=== PATIENT | female | born 1990 | race Caucasian/White ===

== ENCOUNTER 2019-03-26 20:32 | Emergency (ER) | payer OTHER ==
[~2019-03-26] VITALS: Ht 160 cm; Wt 115.2 kg
[2019-03-26 21:11] LABS: BILIRUBIN,URINE NEGATIVE (NEGATIVE); CLARITY,URINE SLIGHTLY CLOUDY; COLOR,URINE YELLOW; GLUCOSE, URINE (UA) NEGATIVE (NEGATIVE); KETONES,URINE NEGATIVE (NEGATIVE); LEUKOCYTE ESTERASE ,URINE NEGATIVE (NEGATIVE); NITRITE,URINE NEGATIVE (NEGATIVE); PH,URINE 5.5 (5-9); PROTEIN,URINE NEGATIVE (NEGATIVE)
[2019-03-26 21:12] LABS: BACTERIA,URINE MODERATE /HPF; SQUAMOUS EPITHELIAL CELL,UR 25-50 /HPF
--- NOTE | 2019-03-26 21:18 | ED Abdominal Pain ---
General Chief Complaint: Abdominal/GI Problems Stated Complaint: LEFT UPPER QUADRANTPAIN Nursing Triage Note: pt in police custody with [place] perez, co left upper quad abd pain since this am, has some frequency and burning with urination Sepsis Screen: No Definite Risk Source of Information: Patient History of Present Illness Date Seen by Provider: Mar 26, 2019 Time Seen by Provider: 21:18 Initial Comments 28-year-old female presenting from [facility] with complaints of upper abdominal pain. She has had nausea but no vomiting. She hasn't been wanting to eat as much today because of her nausea and abdominal pain. She states that she has had some spotting for the last 3 weeks. She has sharp abdominal pain going into her back. It radiates across her abdomen. It is worse when she tries to eat or drink something. She denies having pain like this before. She has had no fever or chills. She recently was on Bactrim for a rash. Allergies and Home Medications Allergies Coded Allergies: lithium (Verified Allergy, Unknown, 03/26/19) meperidine (Verified Allergy, Unknown, 03/26/19) Home Medications Dicyclomine HCl 20 Mg Tablet, 20 MG PO QID PRN for abdominal pain/cramping Prescribed by: TAB SMITH on 03/26/192325 Ondansetron 4 Mg Tab.rapdis, 4 MG PO Q6H PRN for NAUSEA/VOMITING Prescribed by: TAB SANTART on 03/26/192325 Patient Home Medication List Home Medication List Reviewed: Yes Review of Systems Review of Systems Constitutional: No chills, No fever; malaise EENTM: No Symptoms Reported Respiratory: No Symptoms Reported Cardiovascular: No Symptoms Reported Gastrointestinal: See HPI Genitourinary: Denies Burning, Denies Discharge, Denies Drainage, Denies Flank Pain Musculoskeletal: no symptoms reported Skin: no symptoms reported Psychiatric/Neurological: No Symptoms Reported Endocrine: No Symptoms Reported Past Dqufvhl-Djwjkm-Fvxnjj Hx Past Med/Social Hx: Reviewed Nursing Past Med/Soc Hx Patient Social History Alcohol Use: Denies Use Recreational Drug Use: No Smoking Status: Current Everyday Smoker 2nd Hand Smoke Exposure: No Recent Foreign Travel: No Contact w/Someone Who Travel: No Recent Infectious Disease Expo: No Recent Hopitalizations: No Physical Abuse: No Sexual Abuse: No Mistreated: No Fear: No Seasonal Allergies Seasonal Allergies: No Past Medical History Surgeries: Yes Section Respiratory: No Cardiac: No Neurological: No Genitourinary: No Gastrointestinal: No Musculoskeletal: No Endocrine: No HEENT: No Cancer: No Psychosocial: No Integumentary: No Blood Disorders: No Physical Exam Vital Signs Vital Signs - First Documented 03/26/19 20:58 Temp 36.8 Pulse 112 Resp 16 B/P (MAP) 158/88 (111) Pulse Ox 98 O2 Delivery Room Air Capillary Refill : Less Than 3 Seconds Height/Weight/BMI Height: '" Weight: lbs. oz. kg; 45.00 BMI Method: General Appearance: WD/WN, mild distress, obese HEENT: PERRL/EOMI, pharynx normal Neck: non-tender, full range of motion, supple, normal inspection Respiratory: chest non-tender, lungs clear, normal breath sounds Cardiovascular: normal peripheral pulses, regular rate, rhythm Gastrointestinal: normal bowel sounds, soft, no pulsatile mass; No distended, No guarding, No rebound; tenderness (diffuse mild tenderness with palpation), other (obese abdomen) Rectal: deferred Extremities: normal range of motion, non-tender, normal capillary refill Back: no vertebral tenderness, CVA tenderness (R), CVA tenderness (L) Neurologic/Psychiatric: corrugator II-XII nml as tested, alert, oriented x 3 Skin: normal color, warm/dry Progress/Results/Core Measures Results/Orders Lab Results Laboratory Tests Test 03/26/19 20:55 03/26/19 22:20 Range/Units Urine Color YELLOW Urine Clarity SLIGHTLY CLOUDY Urine pH 5.5 5-9 Urine Specific Alger 1.020 1.016-1.022 Urine Protein NEGATIVE NEGATIVE Urine Glucose (UA) NEGATIVE NEGATIVE Urine Ketones NEGATIVE NEGATIVE Urine Nitrite NEGATIVE NEGATIVE Urine Bilirubin NEGATIVE NEGATIVE Urine Urobilinogen 0.2 < = 1.0 MG/DL Urine Leukocyte Esterase NEGATIVE NEGATIVE Urine RBC (Auto) 3+ H NEGATIVE Urine RBC 10-25 H /HPF Urine WBC 10-25 H /HPF Urine Squamous Epithelial Cells 25-50 H /HPF Urine Crystals NONE /LPF Urine Bacteria MODERATE H /HPF Urine Casts NONE /LPF Urine Mucus NEGATIVE /LPF Urine Culture Indicated YES Urine Test NEGATIVE NEGATIVE White Blood Count 9.7 4.3-11.0 10^3/uL Red Blood Count 5.18 4.35-5.85 10^6/uL Hemoglobin 13.1 11.5-16.0 G/DL Hematocrit 40 35-52 % Mean Corpuscular Volume 77 L 80-99 FL Mean Corpuscular Hemoglobin 25 25-34 PG Mean Corpuscular Hemoglobin Concent 33 32-36 G/DL Red Cell Distribution Width 15.3 H 10.0-14.5 % Platelet Count 328 130-400 10^3/uL Mean Platelet Volume 9.1 7.4-10.4 FL Neutrophils (%) (Auto) 47 42-75 % Lymphocytes (%) (Auto) 42 12-44 % Monocytes (%) (Auto) 7 0-12 % Eosinophils (%) (Auto) 3 0-10 % Basophils (%) (Auto) 1 0-10 % Neutrophils # (Auto) 4.6 1.8-7.8 X 10^3 Lymphocytes # (Auto) 4.1 H 1.0-4.0 X 10^3 Monocytes # (Auto) 0.7 0.0-1.0 X 10^3 Eosinophils # (Auto) 0.3 0.0-0.3 10^3/uL Basophils # (Auto) 0.1 0.0-0.1 10^3/uL Sodium Level 139 135-145 MMOL/L Potassium Level 4.4 3.6-5.0 MMOL/L Chloride Level 101 98-107 MMOL/L Carbon Dioxide Level 25 21-32 MMOL/L Anion Gap 13 5-14 MMOL/L Blood Urea Nitrogen 14 7-18 MG/DL Creatinine 0.66 0.60-1.30 MG/DL Estimat Glomerular Filtration Rate > 60 BUN/Creatinine Ratio 21 Glucose Level 102 70-105 MG/DL Calcium Level 9.4 8.5-10.1 MG/DL Corrected Calcium 9.2 8.5-10.1 MG/DL Total Bilirubin < 0.2 0.1-1.0 MG/DL Aspartate Amino Transf (AST/SGOT) 18 5-34 U/L Alanine Aminotransferase (ALT/SGPT) 25 0-55 U/L Alkaline Phosphatase 70 40-136 U/L Total Protein 7.2 6.4-8.2 GM/DL Albumin 4.3 3.2-4.5 GM/DL Lipase 31 8-78 U/L My Orders Orders - TAB SMITH MD Ua Culture If Indicated (03/26/19 20:38) Hcg,Qualitative Urine (03/26/19 20:38) Urine Culture (03/26/19 20:55) Ketorolac Injection (Toradol Injection) (03/26/19 21:45) Ct Abdomen/Pelvis Wo (03/26/19 21:43) Ondansetron Oral Dissolve Tab (Zofran (03/26/19 22:05) Cbc With Automated Diff (03/26/19 22:05) Comprehensive Metabolic Panel (03/26/19 22:05) Lipase (03/26/19 22:05) Dicyclomine Injection (Bentyl Injection) (03/26/19 23:19) Medications Given in ED Current Medications Medications Dose Ordered Sig/Katharina Route Start Time Stop Time Status Last Admin Dose Admin Ketorolac Tromethamine 60 mg ONCE ONCE IM 03/26/19 21:45 03/26/19 21:46 DC 03/26/19 22:19 60 MG Vital Signs/I&O 03/26/19 03/26/19 20:58 23:35 Temp 36.8 Pulse 112 72 Resp 16 18 B/P (MAP) 158/88 (111) 132/91 Pulse Ox 98 99 O2 Delivery Room Air Room Air Blood Pressure Mean: 111 Progress Progress Note #1: Progress Note Obtain urinalysis and test. The test was negative and the urinalysis showed some blood but no definite infection. Will give Toradol for pain and obtain basic lab been CT scan to evaluate further for her pain and symptoms. Progress Note #2: Time: 21:43 Progress Note Obtain labs and CT scan to evaluate her abdominal pain and nausea further. Progress Note #3: Time: 23:01 Progress Note Labs did not show any acute significant abnormality. Her symptoms were improved with treatment. The CT scan shows no acute pathology but she does have a cystic mass around the left ovary. Encouraged to follow-up with Gynecology regarding this. Will treat symptomatically for possible gastroenteritis. Given Bentyl prior to discharge and prescribed Bentyl (dicyclomine) as well as Zofran for her symptoms. Diagnostic Imaging Diagonstic Imaging: CT Plain Films/CT/US/NM/MRI: abdomen, pelvis Comments Impression: 1. No acute pathology seen 2. Follow-up recommended to evaluate cystic mass from the ovary with differential includes benign ovarian neoplasm, endometrioma. Radiologist Vlad Sharpe M.D. Read at 9411 and faxed at [phone] Reviewed: [facility] Imp[facility] Primary Impression: Nausea alone Additional Impressions: Diffuse abdominal pain Left ovarian cyst Disposition: HOME, SELF-CARE Condition: Stable Departure-Patient Inst. Decision time for Depature: 23:21 Referrals: NO,LOCAL PHYSICIAN (PCP) Primary Care Physician [facility] Patient Instructions: Acute Abdomen (Belly Pain), Adult (DC), Full Liquid Diet, Nausea and Vomiting, Adult (DC), Ovarian Cyst (DC) Add. Discharge Instructions: Follow a liquid diet for the next 24 hours. Use the medicine for cramping/abdominal pain and nausea. Check with provider about abdominal pain/nausea Follow up with Gynecology about the ovarian cyst on the left. All discharge instructions reviewed with patient and/or family. Voiced understanding. Scripts Dicyclomine HCl (Dicyclomine HCl) 20 Mg Tablet 20 MG PO QID PRN for abdominal pain/cramping for 5 Days, #20 TAB 0 Refills Prov: TAB SMITH MD 03/26/19 Ondansetron (Ondansetron Odt) 4 Mg Tab.rapdis 4 MG PO Q6H PRN for NAUSEA/VOMITING for 2 Days, #8 TAB 0 Refills Prov: TAB SMITH MD 03/26/19 Images Torso/Trunk 1 - Mild, Tenderness (pain in upper abdomen that radiates to back) TAB SMITH MD Mar 26, 2019 21:18
[2019-03-26] MEDS ORDERED: KETOROLAC 60 MG/2 ML VIAL IM ONE (21:45)
[2019-03-26] MEDS ORDERED: ONDANSETRON 4 MG (ZOFRAN) ORAL DISSOLVE TAB PO STA (22:05)
[2019-03-26 22:25] LABS: BASOPHILS # (AUTO) 0.1 10^3/uL (0.0-0.1); BASOPHILS % (AUTO) 1 % (0-10); EOSINOPHILS # (AUTO) 0.3 10^3/uL (0.0-0.3); EOSINOPHILS % (AUTO) 3 % (0-10); HEMATOCRIT 40 % (35-52); HEMOGLOBIN 13.1 G/DL (11.5-16.0); LYMPHOCYTES # (AUTO) 4.1 X 10^3 (1.0-4.0); LYMPHOCYTES % (AUTO) 42 % (12-44); MEAN CORPUSCULAR HEMOGLOBIN 25 PG (25-34); MEAN CORPUSCULAR HGB CONC 33 G/DL (32-36); MEAN CORPUSCULAR VOLUME 77 FL (80-99); MEAN PLATELET VOLUME 9.1 FL (7.4-10.4); MONOCYTES # (AUTO) 0.7 X 10^3 (0.0-1.0); MONOCYTES % (AUTO) 7 % (0-12); NEUTROPHILS # (AUTO) 4.6 X 10^3 (1.8-7.8); NEUTROPHILS % (AUTO) 47 % (42-75); PLATELET COUNT 328 10^3/uL (130-400); RED CELL DISTRIBUTION WIDTH 15.3 % (10.0-14.5); WHITE BLOOD COUNT 9.7 10^3/uL (4.3-11.0)
[2019-03-26 22:43] LABS: BILIRUBIN,TOTAL < 0.2 MG/DL (0.1-1.0); BUN/CREATININE RATIO 21; CALCIUM 9.4 MG/DL (8.5-10.1); CARBON DIOXIDE 25 MMOL/L (21-32); CHLORIDE 101 MMOL/L (98-107); CREATININE SERUM 0.66 MG/DL (0.60-1.30); GFR ESTIMATED > 60; GLUCOSE 102 MG/DL (70-105); POTASSIUM 4.4 MMOL/L (3.6-5.0); SODIUM 139 MMOL/L (135-145)
[2019-03-26 22:44] LABS: ALANINE AMINOTRANSFERASE 25 U/L (0-55); ALBUMIN 4.3 GM/DL (3.2-4.5); ALKALINE PHOSPHATASE 70 U/L (40-136); LIPASE 31 U/L (8-78); TOTAL PROTEIN 7.2 GM/DL (6.4-8.2)
[2019-03-26] MEDS ORDERED: DICYCLOMINE 10 MG/ML (BENTYL) 2 ML AMP IM STA (23:19)
[2019-03-26] MEDS ORDERED: ONDA4TAB11 PO (23:26)
[2019-03-26] MEDS ORDERED: DICY20TA10 PO (23:26)
[2019-03-26 23:35] VITALS: BP 132/91
--- NOTE | 2019-03-27 07:31 | Diagnostic Imaging Report ---
PROCEDURE: CT abdomen and pelvis without contrast. TECHNIQUE: Multiple contiguous axial images were obtained through the abdomen and pelvis without the use of intravenous contrast. Auto Exposure Controls were utilized during the CT exam to meet ALARA standards for radiation dose reduction. DATE: March 26, 2019. COMPARISON: None. INDICATION: 28-year-old female, left upper quadrant abdominal pain. FINDINGS: There are limitations for evaluation of the abdominal organs, neoplastic processes, abscess, and limited evaluation of the vasculature relating to the lack of intravenous contrast. The visualized portions of the lung bases are clear. The heart is not enlarged. There is no pericardial effusion. The liver is diffusely low in attenuation consistent with diffuse fatty infiltration of the liver. The outer liver contours are not nodular. The gallbladder is unremarkable. There is no biliary ductal dilation. The main pancreatic duct is not abnormally dilated. Limited noncontrast evaluation of the pancreatic parenchyma is unremarkable. The spleen is not enlarged. There is an accessory splenule on axial image 31. The adrenal glands are unremarkable. Unremarkable appearance of the renal parenchyma. The urinary collecting systems are not distended. There is no identified renal or ureteral stone. There is a cystic mass in the pelvis measuring approximately 8.4 x 7.9 cm in axial dimension as measured on axial image 118 which may be a cystic left ovarian lesion versus paraovarian in location. There is mass effect on the urinary bladder. The urinary bladder is otherwise unremarkable in appearance. The intestinal tract is not distended. There is no evidence to suggest acute appendicitis. There is no free intraperitoneal air. There is no drainable fluid collection. There is no free pelvic fluid. There is no identified abnormally enlarged lymph node in the abdomen or pelvis which meets CT size criteria for adenopathy. There are bilateral L5 pars interarticularis defects. There is no identified acute bony abnormality. IMPRESSION: CT ABDOMEN AND PELVIS. 1. Cystic mass in the pelvis measuring approximately 8.4 x 7.9 cm in size which may be ovarian in etiology versus paraovarian. This is not well characterized on CT. This potentially could relate to a large ovarian cyst or paraovarian cyst although neoplastic etiology is also in the differential diagnosis. Pelvic ultrasound is recommended for further evaluation. 2. No otherwise identified potential acute abnormality in the abdomen or pelvis. 3. Diffuse fatty infiltration of the liver. Dictated by: Dictated on workstation # [id number]
--- OUTSIDE RECORDS SUMMARY | 2019-04-03 21:49 | XMS REPORT | Clinical Summary ---
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 JAYDE BUSH MD Patellofemoral stress syndrome Hospitalized for TENSION HEADACHE 439981885 (SNOMED CT) Active JAYDE BUSH MD Tension-type headache ASTHMA, MILD, INTERMITTENT 656728668 (SNOMED CT) Active JAYDE BUSH MD Mild intermittent asthma VULVOVAGINITIS 76174721 (SNOMED CT) Active JAYDE BUSH MD Vulvovaginitis ADJUSTMENT REACTION, ADOLESCENT 283638901 (SNOMED CT) Active JAYDE BUSH MD Adjustment reaction of adolesc ence INGROWN TOENAIL, INFECTED 92560196 (SNOMED CT) Active JAYDE BUSH MD Ingrowing nail with infection FAMILY HISTORY OF DIABETES 110347323 (SNOMED CT) Active JAYDE BUSH MD FH: Diabetes mellitus Medications Medication Instructions Start Date Stop Date Generic Name NDC Pr ovider ALBUTEROL 90 MCG/ACT AERO SOLN Take two (2) puffs every 4 ho urs as needed ALBUTEROL [id number] JAYDE Garza CEPHALEXIN MONOHYDRATE 500 MG TABS Take ONE capsule po TID 10/21 CEPHALEXIN [id number] JAYDE BUSH MD ORTHO TRI-CYCLEN LO 0.18/0.215/0.25 MG-25 MCG TABS Take ONE tablet daily. NORGESTIMATE-ETHINYL ESTRADIOL [id number] B BERTA BUSH MD ORTHO EVRA 150-35 MCG/24HR TRANSDERMAL PATCH WEEKLY Apply ON E patch weekly. NORELGESTROMIN-ETH ESTRADIOL [id number] ROSIBEL BUSH MD Medications Administered No information available. Allergies, Adverse Reactions, Alerts No information available. Results No information available. Plan of Care Type Date Detail Referral PT Eval and Treat Referral PT Eval and Treat Pending order HIV SCREEN (HIV-1/HI V-2, single assay) Pending order VDRL Pending order HCG-Urine Procedures Code Procedure Name Date Entry Date 94905 PT Eval and Treat CPT-59184 HIV SCREEN (HIV-1/HIV-2, single assay) 6 CPT-30503 VDRL CPT-20925 HCG-Urine Vital Signs Date Name Value Unit Description BP Diastolic 78 mm[Hg] blood pressure, diastolic BP Systolic 122 mm[Hg] blood pressure, systolic Weight Measured 209 [lb_av] weight E&M Weight Measured 95.00 kg weight in ki lograms E&M
--- OUTSIDE RECORDS SUMMARY | 2019-04-03 21:49 | XMS REPORT | Continuity of Care Document ---
Author Organization Unknown Address Unknown Phone Unavailable Allergies Active Description Code Type Severity Reaction Onset Reported/Identified Relationship to Patient Clinical Status Yes lithium [id number] Drug Allergy Unknown N/A 03/26/2019 Yes meperidine [id number] Drug Allerg y Unknown N/A 03/26/2019 Medications There is no data. Problems There is no data. Procedures There is no data. Results Test Result Range Urine beta human chorionic gonadotropin (hCG) measurement - 03/26/19 20:55 Urine beta human chorionic gonadotropin (hCG) measurem ent NEGATIVE NEGATIVE Complete urinalysis with reflex to cultu re - 03/26/19 20:55 Urine color determination YELLOW NRG Urine clarity determination SLIGHTLY CLOUDY NRG Urine pH measurement by test strip 5.5 5-9 Specific gravity of urine by test strip 1.020 1.016-1.022 Urine protein assay by test strip, semi-quantitative NEGATIVE NEGATIVE Urine glucose detection by automated test strip NE GATIVE NEGATIVE Erythrocytes detection in urine sediment by light micr oscopy 3+ NEGATIVE Urine ketones detection by automated test strip NE GATIVE NEGATIVE Urine nitrite detection by test strip NEGATIVE NEGATIVE Urine total bilirubin detection by test strip NEGA TIVE NEGATIVE Urine urobilinogen measurement by automated test strip (mass/volume) 0.2 mg/dL < = 1.0 Urine leukocyte esterase detection by dipstick NEG ATIVE NEGATIVE Automated urine sediment erythrocyte cou nt by microscopy (number/high power field) [HPF] NRG Automated urine sediment leukocyte count by microscopy (number/high power field) [HPF] NRG Bacteria detection in urine sediment by light microsco py MODERATE NRG Squamous epithelial cells detection in u rine sediment by light microscopy 25-50 NRG Crystals detection in urine sediment by light microsco py NONE NRG Casts detection in urine sediment by light microscopy NONE NRG Mucus detection in urine sediment by light microscopy NEGATIVE NRG Complete urinalysis with reflex to culture YES NRG Bacterial urine culture - 03/26/19 20:55 Bacterial urine culture NG NRG Complete blood count (CBC) with automate d white blood cell (WBC) differential - 03/26/19 22:20 Blood leukocytes automated count (number/volume) 9.7 10*3/uL 4.3-11.0 Blood erythrocytes automated count (number/volume) 5.18 10*6/uL 4.35-5.85 Venous blood hemoglobin measurement (mass/volume) 13.1 g/dL 11.5-16.0 Blood hematocrit (volume fraction) 40 % 35-52 Automated erythrocyte mean corpuscular volume 77 [ foz_us] 80-99 Automated erythrocyte mean corpuscular h emoglobin (mass per erythrocyte) 25 pg 25-34 Automated erythrocyte mean corpuscular h emoglobin concentration measurement (mass/volume) 33 g/dL 32-36 Automated erythrocyte distribution width ratio 15. 3 % 10.0- 14.5 Automated blood platelet count (count/volume) 328 10*3/uL 130-400 Automated blood platelet mean volume measurement 9.1 [foz_us] 7.4-10.4 Automated blood neutrophils/100 leukocytes 47 % 42-75 Automated blood lymphocytes/100 leukocytes 42 % 12-44 Blood monocytes/100 leukocytes 7 % 0-12 Automated blood eosinophils/100 leukocytes 3 % 0-10 Automated blood basophils/100 leukocytes 1 % 0-10 Blood neutrophils automated count (number/volume) 4.6 10*3 1.8-7.8 Blood lymphocytes automated count (number/volume) 4.1 10*3 1.0-4.0 Blood monocytes automated count (number/volume) 0. 7 10*3 0.0-1.0 Automated eosinophil count 0.3 10*3/uL 0 .0-0.3 Automated blood basophil count (count/volume) 0.1 10*3/uL 0.0-0.1 Comprehensive metabolic panel - 03/26/19 22:20 Serum or plasma sodium measurement (moles/volume) 139 mmol/L 135-145 Serum or plasma potassium measurement (moles/volume) 4.4 mmol/L 3.6-5.0 Serum or plasma chloride measurement (moles/volume) 101 mmol/L 98-107 Carbon dioxide 25 mmol/L 21-32 Serum or plasma anion gap determination (moles/volume) 13 mmol/L 5-14 Serum or plasma urea nitrogen measurement (mass/volume ) 14 mg/dL 7-18 Serum or plasma creatinine measurement (mass/volume) 0.66 mg/dL 0.60-1.30 Serum or plasma urea nitrogen/creatinine mass ratio 21 NRG Serum or plasma creatinine measurement w ith calculation of estimated glomerular filtration rate > NRG Serum or plasma glucose measurement (mass/volume) 102 mg/dL 70-105 Serum or plasma calcium measurement (mass/volume) 9.4 mg/dL 8.5-10.1 Serum or plasma total bilirubin measurement (mass/volu me) < mg/dL 0.1-1.0 Serum or plasma alkaline phosphatase chelita surement (enzymatic activity/volume) 70 U/L 40-136 Serum or plasma aspartate aminotransfera se measurement (enzymatic activity/volume) 18 U/L 5-34 Serum or plasma alanine aminotransferase measurement (enzymatic activity/volume) 25 U/L 0-55 Serum or plasma protein measurement (mass/volume) 7.2 g/dL 6.4-8.2 Serum or plasma albumin measurement (mass/volume) 4.3 g/dL 3.2-4.5 CALCIUM CORRECTED 9.2 mg/dL 8.5-10.1 Lipase - 03/26/19 22:20 Lipase 31 U/L 8-78 Encounters ACCT No. Visit Date/Time Discharge Status Pt. Type Provider Facility Loc./Unit Complaint [id number] 08/10/2018 16:00:13 08/10/2018 23:59: 59 CLS Outpatient [id number] 03/26/2019 20:38:00 020 23:35:00 DIS Emergency SARAH SCHREIBER, TAB [facility] FS LEFT UPPER QUADRANTPAIN
--- OUTSIDE RECORDS SUMMARY | 2019-04-03 21:49 | XMS REPORT ---
Author Author JOSE HURT [facility] Address [address], [facility] [address] [place] [address] Care Team Providers Care Auto Hiker Name Role Phone LAURATovaANDRES Unavailable BLUADELITA Unavailable Problems Problem SNOMED Onset Date Resolved Date Status [id number] Ac tive Drug therapy finding [id number] Active Moderate depressed bipolar I disorder 61201667 Active Allergies, Adverse Reactions No Known Allergy Care Plan Goal Instructions Client will be functioning more indepen dently with supports and have a life worth living. CRISIS SERVICE BUNDLE + H2011 Crisis Intervention Attd Care + [id number] Crisis Intervention BA level Client will be functioning more indepen dently with supports and have a life worth living. ADULT THERAPY SERVICE BUNDLE - Provide t he following services 1-3 times each week: + 80239 Psychotherapy, 16-37 Minutes + 91007 Psychotherapy, 38-52 Minutes + 25592 Psychotherapy, 53+ Minutes + 15274 Psychotherapy for Crisis 31-74 Minutes + 00200 Each Add'l 30 Min Crisis Psychotherapy + 08129 Group Therapy + 27429 Case Conf w/Clt NN-Physician + [id number] Case Conf w/o Clt + Fam w/MD + [id number] Case Conf w/o Clt w/MD + [id number] Psychosocial Adult Group + [id number] TCM - Targeted Case Management Client will be functioning more indepen dently with supports and have a life worth living. CRISIS SERVICE BUNDLE + H2011 Crisis Intervention Attd Care + [id number] Crisis Intervention BA level + [id number] Crisis Intervention QMHP Improve and maintain functioning throug h medical psychiatric services. Initial Psychiatric Evaluation, Ongoing medication monitoring and management, Case Conference with multidisciplinary members of the [facility] team as indicated, and/or Collaboration and coordination with outside medical providers as indicated by providing the following services: 13207 interactive complexity 41616 psychiatric diagnostic eval w/ meds 41587 30 min psychotherapy add-on 14863 45 [place] [address] 60 min psychotherapy add-on 69266 med injection 87755 New Patient E&M (level 1) 17151 New Patient E&M (level 2) 42284 New Patient E&M (level 3) 85856 New patient E&M (level 4) 05163 New Patient E&M (level 5) 41221 Established Patient E&M (level 1) 76511 Established Patient E&M (level 2) 63792 Established Patient E&M (level 3) 95856 Established Patient E&M (level 4) 87161 Established Patient E&M (level 5) 9935x prolonged service code 31608 case conference w/o clt & fam w/ [place] 36191 case conference w/o clt w/ MD [id number] Peer Support Shonna Date Name Code Type Code Valproic Acid, Serum (Valpro ic Acid Level) (Depakote Level) 76484 Hepatic Function Panel (7) (LFT) (Liver) 43462 Complete Blood Count (CBC) With Differen tial 74122 Medications Medication Code Dose,Form,Route,Freq Start Date End Date Perigard IUD Escitalopram - 10 MG ORAL Tablet 732005 Take one (1) tablet by mouth every morning busPIRone - 10 MG ORAL Tablet 646720 T leonard one (1) tablet by mouth three times a day Divalproex Sodium - 500 MG ORAL Tablet, Extended Relea se 0391600 Take two (2) tablets by mouth at bedtime Lab Results NA Encounters Date Time Service Code Provider 09:30:00 am ADELITA HURT Family History Functional Status NA Immunizations NA Vital Signs Date Time BP Pulse Temp Height Weight BMI 12:23:00 pm 136 over 90 90 bp m 64.5 in 252 lbs 42.6 kg/m^2 Social History Date Smoking Status SNOMED Code Current Every Day Smoker 996666 002 Hospital Discharge Instructions NA Hospital Discharge medications Date Medication Dose, Form, Route, Freq Code Perigard IUD Instructions * Not Applicable Procedures NA Purpose Electronic Copy
--- OUTSIDE RECORDS SUMMARY | 2019-04-03 21:49 | XMS REPORT ---
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 Initial Psychiatric Evaluation, Ongoing medication monitoring and management, Case Conference with multidisciplinary members of the [facility] team as indicated, and/or Collaboration and coordination with outside medical providers as indicated by providing the following services: 36018 interactive complexity 86058 psychiatric diagnostic eval w/ meds 15610 30 min psychotherapy add-on 53947 45 [place] [address] 60 min psychotherapy add-on 79122 med injection 21974 New Patient E&M (level 1) 02824 New Patient E&M (level 2) 02394 New Patient E&M (level 3) 80726 New patient E&M (level 4) 82028 New Patient E&M (level 5) 47294 Established Patient E&M (level 1) 84625 Established Patient E&M (level 2) 60998 Established Patient E&M (level 3) 17694 Established Patient E&M (level 4) 45511 Established Patient E&M (level 5) 9935x prolonged service code 06824 case conference w/o clt & fam w/ [place] 982[address] case conference w/o clt w/ MD [id number] Peer Support Shonna Improve mood and overall functioning. ADULT THERAPY SERVICE BUNDLE - Provide the following services 1-3 times each week: + 34050 Psychotherapy, 16- 37 Minutes + 90865 Psychotherapy, 38-52 Minutes + 30774 Psychotherapy, 53+ Minutes + 94803 Psychotherapy for Crisis 31-74 Minutes + 59382 Each Add'l 30 Min Crisis Psychotherapy + 44258 Group Therapy + 32272 Case Conf w/Clt NN- Physician + 09122 Case Conf w/o Clt + Fam w/MD + 76437 Case Conf w/o Clt w/MD + [id number] Psychosocial Adult Group Improve mood and overall functioning. ADULT THERAPY SERVICE BUNDLE - Provide the following services 1-3 times each week: + 63676 Psychotherapy, 16- 37 Minutes + 51987 Psychotherapy, 38-52 Minutes + 27182 Psychotherapy, 53+ Minutes + 89362 Psychotherapy for Crisis 31-74 Minutes + 73956 Each Add'l 30 Min Crisis Psychotherapy + 70259 Group Therapy + 58793 Case Conf w/Clt NN- Physician + 88257 Case Conf w/o Clt + Fam w/MD + 86896 Case Conf w/o Clt w/MD + [id number] Psychosocial Adult Group + [id number] TCM - Targeted Case Management Date Name Code Type Code Valproic Acid, Serum (Valpro ic Acid Level) (Depakote Level) 50301 Hepatic Function Panel (7) (LFT) (Liver) 62343 Complete Blood Count (CBC) With Differen tial 27064 Medications Medication Code Dose,Form,Route,Freq Start Date End Date busPIRone - 10 MG ORAL Tablet 094622 T leonard one (1) tablet by mouth three times a day Divalproex Sodium - 500 MG ORAL Tablet, Extended Relea se 2891540 Take two (2) tablets by mouth at bedtime [place] Carbonate - 300 MG ORAL Capsule 431565 Take one (1) capsule by mouth twice a day Escitalopram - 10 MG ORAL Tablet 001357 Take one (1) tablet by mouth every morning QUEtiapine Fumarate - 50 MG ORAL Tablet 081447 Take one half (0.5) tablets by mouth twice a day Lab Results NA Encounters Date Time Service Code Provider 09:30:00 am ADELITA HURT 01:30:00 pm ADELITA HURT Family History Functional Status NA Immunizations NA Vital Signs Date Time BP Pulse Temp Respiratory Rate Height Weight BMI SpO2 09:40:00 am 130 over 88 92 bp m 265 lbs 12:23:00 pm 136 over 90 90 bp m 64.5 in 252 lbs 42.6 kg/m^2 Social History Date Smoking Status SNOMED Code Current Every Day Smoker 121230 002 Hospital Discharge Instructions NA Instructions NA Procedures NA Purpose Electronic Copy
== END 2019-03-26 23:35 | disposition home or self-care (01) ==
LOC: ER FS 20:38
DX: N83.202 Unspecified ovarian cyst, left side (principal); R10.84 Generalized abdominal pain; F17.200 Nicotine dependence, unspecified, uncomplicated; Z88.8 Allergy status to other drugs, medicaments and biological substances; Z88.5 Allergy status to narcotic agent
CPT/HCPCS: 36415; 74176; 80053; 81000; 83690; 84703; 85025; 87088; 96372